=== PATIENT | female | born 1930 | race Caucasian/White ===

== ENCOUNTER 2018-03-09 09:48 | Outpatient (CLI) | payer OTHER, MEDICAID | END 2018-03-09 19:49 | disposition home or self-care (01) | LOC: SUS 09:48 | PROVIDERS: ATTEND Internal Medicine | DX: N39.0 Urinary tract infection, site not specified (principal) | CPT/HCPCS: 76770 ==

== ENCOUNTER 2019-07-04 23:50 | Inpatient (IN) | payer OTHER, MEDICAID ==
[~2019-07-04] VITALS: Ht 160 cm; Wt 61.5 kg
--- NOTE | 2019-07-05 | NUR ---
Placed in room 08 . Placed on monitoring and evaluation advisor, blood pressure machine and pulse oximeter. To gown for exam. Side rails up.
[2019-07-05 00:01] VITALS: BP_SYST 142
--- NOTE | 2019-07-05 00:04 | NUR ---
Pt AAOx3 presents to ED via BLS from [facility] for low back pain and neck pain s/p mechanical trip and fall prior to arrival. Skin tear noted to L hand. Denies KO. No other injuries/complaints per pt/noted. Will continue to monitor.
--- NOTE | 2019-07-05 00:10 | NUR ---
ER Dr. Calles at bedside examining patient.
--- NOTE | 2019-07-05 00:26 | NUR ---
Radiology at bedside.
[2019-07-05] MEDS ORDERED: MORPHINE 2 MG/ML INJ. SYRINGE IVP ONE (00:30)
[2019-07-05] MEDS ORDERED: KETOROLAC TROMETHAMINE 15 MG VIAL IVP ONE (00:30)
--- NOTE | 2019-07-05 00:53 | NUR ---
Pt taken to CT in stable condition
[2019-07-05 01:49] LABS: BASOPHILS % (AUTO) 0.3 % (0.0-2.0); EOSINOPHILS # (AUTO) 0.2 K/uL (0.0-0.4); EOSINOPHILS % (AUTO) 4.7 % (0.0-4.0); HEMATOCRIT 29.6 % (36-48); HEMOGLOBIN 9.8 g/dL (12.0-16.0); LYMPHOCYTES # (AUTO) 0.9 K/uL (1.0-5.5); LYMPHOCYTES % (AUTO) 20.4 % (20.5-51.5); MEAN CORPUSCULAR HEMOGLOBIN 33 pg (27-31); MEAN CORPUSCULAR HGB CONC 33 % (32-36); MEAN CORPUSCULAR VOLUME 100 fL (79.0-98.0); MONOCYTES # (AUTO) 0.5 K/uL (0.0-1.0); MONOCYTES % (AUTO) 11.1 % (1.7-9.3); NEUTROPHILS # (AUTO) 2.9 K/uL (1.8-7.7); NEUTROPHILS % (AUTO) 63.5 % (40.0-70.0); PLATELET COUNT (AUTO) 138 K/uL (130-430); RED BLOOD CELL COUNT(AUTO) 2.97 MIL/uL (4.2-6.2); RED CELL DISTRIBUTION WIDTH 15.5 % (9.0-15.0); WHITE BLOOD COUNT (AUTO) 4.5 K/uL (4.8-10.8)
[2019-07-05 02:07] LABS: ANION GAP 6 (5-15); CALCIUM 8.5 mg/dL (8.4-11.0); CHLORIDE 102 mmol/L (98-107); CREATININE 1.13 mg/dL (0.55-1.30); GLUCOSE 156 mg/dL (70-99); POTASSIUM 4.3 mmol/L (3.5-5.1); SODIUM SERUM 137 mmol/L (136-145); UREA NITROGEN, BLOOD 25 mg/dL (8-21)
--- NOTE | 2019-07-05 02:10 | NUR ---
Medication administered. Pt tolerated well. No adverse reactions noted. Will continue to monitor.
[2019-07-05 02:12] LABS: ALANINE AMINOTRANSFERASE 26 U/L (12-78); ALBUMIN 3.2 g/dL (3.4-4.8); ASPARTATE AMINOTRANSFERASE 16 U/L (10-37); TOTAL BILIRUBIN 0.5 mg/dL (0.0-1.0)
--- NOTE | 2019-07-05 03:09 | NUR ---
Dr. Mcdowell paged for admission
[2019-07-05] MEDS ORDERED: cefTRIAXone 1 GM IVPB PREMIX 50 ML IV ONE (03:15)
[2019-07-05] MEDS ORDERED: AZITHROMYCIN 500 MG in NS 250 ML IV ONE (03:15)
[2019-07-05] MEDS ORDERED: AZITHROMYCIN 500 MG/VIAL (ZITHROMAX) IV ONE (03:36)
--- NOTE | 2019-07-05 04:30 | NUR ---
Medication reconciliation completed with information provided by list from facility. Any prior medication reconciliation on file was reviewed and corrected.
[2019-07-05] MEDS ORDERED: GLIP5TAB26 PO (04:49)
[2019-07-05] MEDS ORDERED: POTA8CAP20 PO (04:49)
[2019-07-05] MEDS ORDERED: NITR0.4T47 SL (04:49)
[2019-07-05] MEDS ORDERED: [UNRECOGNIZED DRUG - CODE] PO (04:49)
[2019-07-05] MEDS ORDERED: CHOL500013 PO (04:49)
[2019-07-05] MEDS ORDERED: PARO-41 PO (04:49)
[2019-07-05] MEDS ORDERED: HALO50FO3 TP (04:49)
[2019-07-05] MEDS ORDERED: CLOP75TA32 PO (04:49)
[2019-07-05] MEDS ORDERED: HYDR-3921 PO (04:49)
[2019-07-05] MEDS ORDERED: LORA-259 PO (04:49)
[2019-07-05] MEDS ORDERED: ARTT BOTH EYES (04:49)
[2019-07-05] MEDS ORDERED: FAMO20TA8 PO (04:49)
[2019-07-05] MEDS ORDERED: IPRA4AER INH (04:49)
[2019-07-05] MEDS ORDERED: ISOS60TA4 PO (04:49)
[2019-07-05] MEDS ORDERED: BUPR75TA8 PO (04:49)
[2019-07-05] MEDS ORDERED: LEVO50CA2 PO (04:49)
[2019-07-05] MEDS ORDERED: esomeprazole PO (04:49)
[2019-07-05] MEDS ORDERED: CICL90CR10 TP (04:49)
[2019-07-05] MEDS ORDERED: FURO20TA4 PO (04:49)
[2019-07-05] MEDS ORDERED: LISI2.5T48 PO (04:49)
[2019-07-05] MEDS ORDERED: RANO500T4 PO (04:49)
[2019-07-05] MEDS ORDERED: FLUT16SP16 NS (04:49)
[2019-07-05] MEDS ORDERED: DENO60DI SQ (04:49)
[2019-07-05] MEDS ORDERED: PRAV40TA PO (04:49)
[2019-07-05] MEDS ORDERED: MUPI15CR12 TP (04:49)
[2019-07-05] MEDS ORDERED: METO25TA6 PO (04:49)
[2019-07-05] MEDS ORDERED: ACETAMINOPHEN 325 MG TABLET PO PRN (05:00)
--- NOTE | 2019-07-05 05:39 | NUR ---
Pt assisted with bedside commode. Pt produced <10mL urine. Unsteady gait.
--- NOTE | 2019-07-05 05:58 | NUR ---
CONSULTATION PAGED/CALLED Reason for Consultation: SYNCOPE Person Who was Notified: DALE Consulting Physician: CLEOPATRA Flitch Hanger Specialty: CARDIO Ordering Physician: MAURICE
--- NOTE | 2019-07-05 06:02 | NUR ---
Patient will be admitted to [facility]. Admitted to Telemetry unit. Will go to room 121A. Complete and up to date summary report printed. SBAR report to be given at bedside with opportunity for questions.
--- NOTE | 2019-07-05 06:19 | NUR ---
ADMIT NOTE Received pt from ER to the floor with a diagnosis of syncope. Admission process initiated. patient oriented to pain management, safety and call light-teach back done.
[2019-07-05 06:36] VITALS: BP_SYST 113
--- NOTE | 2019-07-05 07:40 | NUR ---
dr curtis came and evaluate the patient.
[2019-07-05 07:59] VITALS: BP_SYST 130
[2019-07-05] MEDS ORDERED: IPRATROPIUM/ALBUTEROL SULFATE 120 PUFFS/4 GM INH INH SCH (08:30)
[2019-07-05] MEDS ORDERED: IPRATROPIUM/ALBUTEROL SULFATE 3 ML AMPUL.NEB (DUONEB) INH PRN (08:32)
[2019-07-05] MEDS ORDERED: RANOLAZINE 500 MG TAB.SR.12H PO ONE (09:00)
[2019-07-05] MEDS ORDERED: FUROSEMIDE 20 MG TABLET PO ONE (09:00)
[2019-07-05] MEDS ORDERED: FAMOTIDINE 20 MG TABLET PO ONE (09:00)
[2019-07-05] MEDS ORDERED: ISOSORBIDE MONONITRATE 30 MG TAB.ER.24H PO ONE (09:00)
[2019-07-05] MEDS ORDERED: LISINOPRIL 5 MG TABLET PO ONE (09:00)
[2019-07-05] MEDS ORDERED: METOPROLOL TARTRATE 25 MG TABLET PO ONE (09:00)
[2019-07-05] MEDS ORDERED: buPROPion HCL 75 MG TABLET PO ONE (09:00)
[2019-07-05] MEDS ORDERED: PARoxetine HCL 20 MG TABLET PO ONE (09:00)
[2019-07-05] MEDS: CLOPIDOGREL BISULFATE 75 MG TABLET PO SCH (09:31)
--- NOTE | 2019-07-05 09:31 | NUR ---
due meds given one by one. eating breakfast right now. hob elevated.
--- NOTE | 2019-07-05 10:00 | NUR ---
PATIENT HAS LEFT FOREARM SKIN TEAR, DRY/INTACT WITH STERI STRIP ON IT. NO DRAINAGE NOTED. AND LEFT HAND DISCOLORATION NOTED. DRY/INTACT. NO ODOR NOTED. NO DRAINAGE NOTED. PURPLISH IN COLOR AND LEFT LOWER LEG SKIN TEAR DRY/INTACT NO ODOR NO DRAINAGE NOTED. AND RIGHT LOWER LEG ECCHYMOSIS NOTED. NO ODOR NOR DRAINAGE NOTED.AND MEDIAL UPPER BACK DISCOLORATION PURPLISH IN COLOR. AND LEFT BUTTOCKS DISCOLORATION PURPLISH IN COLOR NO ODOR NOR DRAINAGE NOTED. RT BUTTOCKS DISCOLORATION PURPLISH IN COLOR NOTED. NO ODOR NOR DRAINAGE NOTED.
--- NOTE | 2019-07-05 11:00 | NUR ---
RESTING IN BED NO SOB NOR PAIN NOTED.
[2019-07-05 12:30] VITALS: BP_SYST 100
--- NOTE | 2019-07-05 13:48 | NUR ---
DC PLANNING CHART REVIEWED, CALLED SEPTEMBER # [phone], SHE DID NOT ANSWER THE CALL, CALLED [facility]- # [phone], AD[address]ESS AT [id number], [place], DME- W/C, ALDS- MODERATE ASSIST, TRANSPORTATION: POSSIBLE PROVIDE FROM [facility]/ [id number] OR [facility]. DCP- BACK TO [facility]IV[facility], CONTINUE CLOSELY FOLLOW UP WITH DCP NEEDED. JCLeena RN CM
--- NOTE | 2019-07-05 13:55 | NUR ---
Wound Evaluation: Late note for 1355 secondary to patient care. Wound Consult ordered for Low Moe Score. Patient evaluated for a low Moe score of 15. Patient was awake, alert, confused and received in a Cielo Bed with an IsoFlex EDGAR mattress. Patient needs to be turned in bed. Skin assessment: 1. Left Mid Back: Large area of purple ecchymosis, present on admission. 2. Left Buttock near Ischium: Large area of purple ecchymosis, present on admission. Recommend: Place one pillow underneath left pelvis, and one pillow underneath left leg to float left buttock at all times. To turn patient (place a pillow under right side or left side (keeping both pillows used to float left buttock). Apply moisture barrier cream prn for soiling. 3. Right Lateral Forearm: Skin tear, approximated residual skin flapwith two steri-strips and dark discolored skin with ecchymosis. Bilateral upper extremities have ecchymosis. Recommend: Cleanse site with normal Saline. Pat dry. Apply non-adherent (Telfa) pad, then wrap with camden wrap. Perform site care daily. 4. Right Dorsal Hand: Dry scab. No odor, no drainage. Bilateral upper extremities have ecchymosis. Recommend: No dressings needed. Continue to monitor site q shift. Recommend: Place one pillow underneath left pelvis, and one pillow underneath left leg to float left buttock at all times. To turn patient (place a pillow under right side or left side (keeping both pillows used to float left buttock). Elevate, off-load and float bilateral heels with pillows. Offload pressure areas with pillows for pressure re-distribution. Perform skin care and monitor skin integrity Q shift. Use moisture barrier cream on moisture susceptible areas QID and PRN for soiling. Initiate low air-loss therapy.
--- NOTE | 2019-07-05 15:19 | NUR ---
PATIENT WAS SEEN BY RAMOS MADRID.
[2019-07-05 16:43] VITALS: BP_SYST 108
--- NOTE | 2019-07-05 17:00 | NUR ---
BLADDER SCAN DONE. WITH 320 ML URINE RETENTION. CALLED DR RICHARDS AWAITING TO CALL BACK.
--- NOTE | 2019-07-05 18:14 | NUR ---
DR RICHARDS CAME AND ORDERED NY INSERTION AND ENSURE PO TID.
--- NOTE | 2019-07-05 18:54 | NUR ---
NY CATHETER INSERTION DONE. WITH ADEQUATE OUTPUT. DARK BROWN COLOR. AND DOCUMENTED.
--- NOTE | 2019-07-05 19:00 | NUR ---
CLOSING: patient stable. no complained of pain noted. verbalized feels better after rdoriguez insertion. noria feeding the patient. still same iv access on the both arms x 2 saline lock. bed low position, alarmed and locked. call lights within reach. has dressing on left arm with skin tear on it. apply oil emulsion on it wrapped with kerlix left hand and left arm. will continue to monitor patients status. endorsed to incoming nurse.
--- NOTE | 2019-07-05 19:30 | NUR ---
OPENING NOTES Patient is alert, no signs of acute respiratory distress, IV site patent, dressings c/d/i. Patient is able to wiggle all toes. Call light within reach, rounds to be done, SCDs on, bed at lowest position, bed alarm on. Will continue to monitor. Addendum: 07/06/19 at 0226 by Chandu Ryan RN Fontaine catheter in place, draining by gravity, no kinks, no loops noted. No SCDs on.
[2019-07-05 20:00] VITALS: BP_SYST 140
[2019-07-05] MEDS: RANOLAZINE 500 MG TAB.SR.12H PO SCH (21:40)
[2019-07-05] MEDS: FAMOTIDINE 20 MG TABLET PO SCH (21:41)
[2019-07-05] MEDS: buPROPion HCL 75 MG TABLET PO SCH (21:41)
[2019-07-05] MEDS: METOPROLOL TARTRATE 25 MG TABLET PO SCH (21:41)
[2019-07-05] MEDS: ISOSORBIDE MONONITRATE 30 MG TAB.ER.24H PO SCH (21:41)
[2019-07-05] MEDS: ATORVASTATIN 10 MG TABLET PO SCH (21:41)
--- NOTE | 2019-07-05 22:30 | NUR ---
Patient is resting, states 0/10. Television channel changed for patient. No needs at this time. Will continue to monitor.
--- NOTE | 2019-07-06 00:05 | NUR ---
Patient is resting after patient tried to get out of bed. No signs of distress observed. Asks for ipad at the desk, but patient did not come with an ipad. Oriented patient to place and time. Will continue to monitor.
[2019-07-06 00:50] VITALS: BP_SYST 133
--- NOTE | 2019-07-06 01:59 | NUR ---
Patient is resting, no signs of acute respiratory distress observed, 1L NC. Will continue to monitor.
--- NOTE | 2019-07-06 03:30 | NUR ---
Patient is resting, no signs of distress observed. Bruises noted, no drainage, no odor. Will continue to monitor.
[2019-07-06] MEDS: LEVOTHYROXINE SODIUM 0.05 MG TABLET PO SCH (06:07)
[2019-07-06 06:29] LABS: BASOPHILS % (AUTO) 0.3 % (0.0-2.0); EOSINOPHILS # (AUTO) 0.3 K/uL (0.0-0.4); HEMATOCRIT 26.1 % (36-48); HEMOGLOBIN 8.5 g/dL (12.0-16.0); LYMPHOCYTES # (AUTO) 0.7 K/uL (1.0-5.5); LYMPHOCYTES % (AUTO) 21.7 % (20.5-51.5); MEAN CORPUSCULAR HEMOGLOBIN 32 pg (27-31); MEAN CORPUSCULAR HGB CONC 33 % (32-36); MEAN CORPUSCULAR VOLUME 99 fL (79.0-98.0); MONOCYTES # (AUTO) 0.3 K/uL (0.0-1.0); MONOCYTES % (AUTO) 9.1 % (1.7-9.3); NEUTROPHILS # (AUTO) 1.9 K/uL (1.8-7.7); NEUTROPHILS % (AUTO) 59.9 % (40.0-70.0); PLATELET COUNT (AUTO) 121 K/uL (130-430); RED BLOOD CELL COUNT(AUTO) 2.64 MIL/uL (4.2-6.2); RED CELL DISTRIBUTION WIDTH 15.2 % (9.0-15.0); WHITE BLOOD COUNT (AUTO) 3.2 K/uL (4.8-10.8)
--- NOTE | 2019-07-06 06:36 | NUR ---
CLOSING NOTES Patient is resting, HOB elevated, no signs of respiratory distress observed, 94 O2 saturation, 1L NC. IV site patent, dressings c/d/i. Patient stated 0/10 throughout shift, dressings intact. Fontaine catheter intact, draining by gravity, no kinks, no loops, bag not touching the floor, clear yellow urine noted. Call light within reach, rounds performed, bed at lowest position, bed alarm on. All needs met throughout shift. Will endorse care to oncoming shift.
[2019-07-06 06:42] LABS: ALANINE AMINOTRANSFERASE 25 U/L (12-78); ALBUMIN 2.6 g/dL (3.4-4.8); ANION GAP 6 (5-15); ASPARTATE AMINOTRANSFERASE 19 U/L (10-37); CALCIUM 8.1 mg/dL (8.4-11.0); CHLORIDE 104 mmol/L (98-107); CREATININE 1.15 mg/dL (0.55-1.30); GLUCOSE 130 mg/dL (70-99); POTASSIUM 4.1 mmol/L (3.5-5.1); SODIUM SERUM 139 mmol/L (136-145); THYROID STIMULATING HORMONE 3.04 uIu/mL (0.36-3.74); TOTAL BILIRUBIN 0.5 mg/dL (0.0-1.0); UREA NITROGEN, BLOOD 32 mg/dL (8-21)
[2019-07-06 08:00] VITALS: BP_SYST 138
--- NOTE | 2019-07-06 08:00 | NUR ---
Initial notes- In bed awake, disoriented. knows name and birthrate. Denies any pain or discomfort at this time. rodriguez cath draining yellow output. No acute distress noted. repositioned. bed alarm on. Seen by Dr. Tang at bedside. Will monitor.
[2019-07-06 08:14] LABS: CHOLESTEROL 84 mg/dL (<200); HDL CHOLESTEROL 44 mg/dL (>55); TRIGLYCERIDES 71 mg/dL (30-150)
[2019-07-06 08:15] LABS: LDL CHOLESTEROL 28 mg/dL (<100)
[2019-07-06] MEDS: METOPROLOL TARTRATE 25 MG TABLET PO SCH ×2 (08:23→21:59)
[2019-07-06] MEDS: RANOLAZINE 500 MG TAB.SR.12H PO SCH ×2 (08:23→21:59)
[2019-07-06] MEDS: ISOSORBIDE MONONITRATE 30 MG TAB.ER.24H PO SCH ×2 (08:24→21:59)
[2019-07-06] MEDS: CLOPIDOGREL BISULFATE 75 MG TABLET PO SCH (08:24)
[2019-07-06] MEDS: buPROPion HCL 75 MG TABLET PO SCH ×2 (08:24→21:59)
[2019-07-06] MEDS: FAMOTIDINE 20 MG TABLET PO SCH ×2 (08:25→21:59)
[2019-07-06] MEDS: PARoxetine HCL 20 MG TABLET PO SCH (08:25)
[2019-07-06] MEDS: FUROSEMIDE 20 MG TABLET PO SCH (08:25)
[2019-07-06] MEDS: LISINOPRIL 5 MG TABLET PO SCH (08:26)
[2019-07-06 09:33] LABS: BILIRUBIN,URINE NEGATIVE (NEGATIVE); BLOOD, URINE 2+ (NEGATIVE); CLARITY/URINE CLEAR (CLEAR); COLOR,URINE YELLOW (YELLOW); GLUCOSE,URINE NEGATIVE (NEGATIVE); KETONES,URINE NEGATIVE (NEGATIVE); LEUKOCYTE ESTERASE ,URINE TRACE (NEGATIVE); NITRITE, URINE NEGATIVE (NEGATIVE); PH,URINE 5.5 (5.0-8.0); PROTEIN URINE 1+ (NEGATIVE)
[2019-07-06 10:11] LABS: BACTERIA,URINE FEW /HPF (None Seen); RBC,URINE 50-80 /HPF (0-3)
[2019-07-06 10:12] LABS: MUCUS,URINE 1+ /LPF (None Seen)
--- NOTE | 2019-07-06 10:29 | NUR ---
Nutrition Update Moe Scale 15 noted. Pt admitted for syncope. Diet: 2 gm Na, Ensure Clear TID BMI: 23 kg/m2 RD to follow per nutrition care standards.
--- NOTE | 2019-07-06 11:38 | NUR ---
Physical therapy at bedside, working with patient.
[2019-07-06 12:15] VITALS: BP_SYST 122
--- NOTE | 2019-07-06 13:30 | NUR ---
Resting in bed, calm. Assisted with eating lunch. Ate very small amount of food. Encouraged fluids. Repositioned.
--- NOTE | 2019-07-06 15:39 | NUR ---
CONSULT HEMATOLOGY PANCYTOPENIA DR FARAH [phone] S/W [facility] OFFICE
--- NOTE | 2019-07-06 15:56 | NUR ---
ROUNDS Seen by dr. Fitch. In bed awake, watching tv. No distress noted. Will continue to monitor.
[2019-07-06] MEDS ORDERED: MEGESTROL ACETATE 400 MG/10 ML UDC PO ONE (16:30)
[2019-07-06 16:51] VITALS: BP_SYST 132
--- NOTE | 2019-07-06 18:33 | NUR ---
Resting in bed. Denies any pain or shortness of breath. Fall and safety precautions in place. Needs met throughout shift. Will endorse.
--- NOTE | 2019-07-06 19:15 | NUR ---
OPENING NOTES Patient is resting, no signs of distress, patient states 0/10 pain at this time. IV site patent, dressings c/d/i. Call light within reach, patient verbalizes understanding, but rounds to be performed, Fontaine catheter intact, draining by gravity, no kinks, no loops, noted. Bed alarm on, bed at lowest position. Will continue to monitor.
[2019-07-06 20:00] VITALS: BP_SYST 141
[2019-07-06] MEDS: ATORVASTATIN 10 MG TABLET PO SCH (21:59)
--- NOTE | 2019-07-06 22:15 | NUR ---
Patient sitting at the side of the bed, oriented patient to room and plan of care. Patient states that she understands. Will continue to monitor.
--- NOTE | 2019-07-07 00:05 | NUR ---
Patient is resting, no signs of distress observed. Will continue to monitor.
[2019-07-07 01:36] VITALS: BP_SYST 143
--- NOTE | 2019-07-07 02:20 | NUR ---
Patient is awake, eyes open. Patient states she is resting, no signs of distress observed. Will continue to monitor.
--- NOTE | 2019-07-07 04:25 | NUR ---
Patient is asleep, rise and fall of chest noted. will continue to monitor.
[2019-07-07] MEDS: LEVOTHYROXINE SODIUM 0.05 MG TABLET PO SCH (06:01)
[2019-07-07 06:17] LABS: BASOPHILS % (AUTO) 0.3 % (0.0-2.0); EOSINOPHILS # (AUTO) 0.3 K/uL (0.0-0.4); EOSINOPHILS % (AUTO) 7.8 % (0.0-4.0); HEMATOCRIT 25.8 % (36-48); HEMOGLOBIN 8.4 g/dL (12.0-16.0); LYMPHOCYTES # (AUTO) 0.9 K/uL (1.0-5.5); LYMPHOCYTES % (AUTO) 27.1 % (20.5-51.5); MEAN CORPUSCULAR HEMOGLOBIN 33 pg (27-31); MEAN CORPUSCULAR HGB CONC 33 % (32-36); MEAN CORPUSCULAR VOLUME 99 fL (79.0-98.0); MONOCYTES # (AUTO) 0.6 K/uL (0.0-1.0); MONOCYTES % (AUTO) 15.9 % (1.7-9.3); NEUTROPHILS # (AUTO) 1.7 K/uL (1.8-7.7); NEUTROPHILS % (AUTO) 48.9 % (40.0-70.0); PLATELET COUNT (AUTO) 122 K/uL (130-430); RED CELL DISTRIBUTION WIDTH 15.3 % (9.0-15.0); WHITE BLOOD COUNT (AUTO) 3.5 K/uL (4.8-10.8)
[2019-07-07 06:21] LABS: ANION GAP 3 (5-15); CALCIUM 8.2 mg/dL (8.4-11.0); CHLORIDE 101 mmol/L (98-107); CREATININE 0.96 mg/dL (0.55-1.30); GLUCOSE 84 mg/dL (70-99); POTASSIUM 3.4 mmol/L (3.5-5.1); SODIUM SERUM 132 mmol/L (136-145); UREA NITROGEN, BLOOD 28 mg/dL (8-21)
--- NOTE | 2019-07-07 06:37 | NUR ---
CLOSING NOTES Patient is resting, no signs of distress, patient states 0/10 pain at this time. IV site patent, dressings c/d/i. Call light within reach, patient verbalizes understanding, but rounds to be performed, Fontaine catheter intact, draining by gravity, no kinks, no loops, noted. Bed alarm on, bed at lowest position. All needs met throughout shift. Will endorse care to oncoming shift.
[2019-07-07 06:56] LABS: TOTAL IRON BIND. CAPACITY 250 ug/dL (250-450)
--- NOTE | 2019-07-07 07:30 | NUR ---
OPENING NOTES: RECEIVED PATIENT FORM PARKS RECREATION DIRECTOR NURSE. PATIENT IS ASLEEP LAYING DOWN IN BED. PATIENT IS TOLERATING OXYGEN ON 2 L NASAL CANNULA WITH NO SIGNS OF DISTRESS OR SHORTNESS OF BREATH NOTED. IV SITE IS PATENT WITH NO SIGNS OF INFILTRATION NOTED. NY CATHETER INTACT AND DRAINING BY GRAVITY. PATIENT IN STABLE CONDITION. SAFETY, FALL AND ASPIRATION PRECAUTIONS ARE IN PLACE. BED LOCKED IN LOWEST POSITION WITH CALL LIGHT IN REACH. WILL CONTINUE TO MONITOR PATIENT FOR ANY CHANGES.
[2019-07-07 08:11] VITALS: BP_SYST 139
[2019-07-07] MEDS: PARoxetine HCL 20 MG TABLET PO SCH (08:58)
[2019-07-07] MEDS: RANOLAZINE 500 MG TAB.SR.12H PO SCH ×2 (08:58→21:10)
[2019-07-07] MEDS: FAMOTIDINE 20 MG TABLET PO SCH ×2 (08:58→21:10)
[2019-07-07] MEDS: MEGESTROL ACETATE 400 MG/10 ML UDC PO SCH (08:58)
[2019-07-07] MEDS: ISOSORBIDE MONONITRATE 30 MG TAB.ER.24H PO SCH ×2 (08:59→21:10)
[2019-07-07] MEDS: FUROSEMIDE 20 MG TABLET PO SCH (08:59)
[2019-07-07] MEDS: buPROPion HCL 75 MG TABLET PO SCH ×2 (08:59→21:10)
[2019-07-07] MEDS: LISINOPRIL 5 MG TABLET PO SCH (09:00)
[2019-07-07] MEDS: METOPROLOL TARTRATE 25 MG TABLET PO SCH ×2 (09:00→21:11)
[2019-07-07 09:55] LABS: BILIRUBIN,URINE NEGATIVE (NEGATIVE); BLOOD, URINE 2+ (NEGATIVE); CLARITY/URINE CLEAR (CLEAR); COLOR,URINE YELLOW (YELLOW); GLUCOSE,URINE NEGATIVE (NEGATIVE); KETONES,URINE NEGATIVE (NEGATIVE); LEUKOCYTE ESTERASE ,URINE NEGATIVE (NEGATIVE); NITRITE, URINE NEGATIVE (NEGATIVE); PH,URINE 5.5 (5.0-8.0); PROTEIN URINE TRACE (NEGATIVE); UROBILINOGEN,URINE 0.2 (0.2-1.0)
[2019-07-07 10:00] LABS: BACTERIA,URINE FEW /HPF (None Seen); RBC,URINE 20-50 /HPF (0-3); WBC,URINE 0-3 /HPF (0-3)
--- NOTE | 2019-07-07 10:22 | NUR ---
RN ROUNDS: PATIENT IS ASLEEP LAYING DOWN IN BED. NO SIGNS OF DISTRESS OR SHORTNESS OF BREATH NOTED. PATIENT IN STABLE CONDITION. WILL CONTINUE TO MONITOR PATIENT FOR ANY CHANGES.
--- NOTE | 2019-07-07 10:34 | NUR ---
MD ROUNDS: DR. RICHARDS MAKING HIS ROUNDS. AWARE OF PATIENT'S CONDITION. NEW ORDERS GIVEN.
[2019-07-07] MEDS ORDERED: POTASSIUM CHLORIDE 20 MEQ/PKT PACKET PO ONE (10:45)
--- NOTE | 2019-07-07 11:00 | NUR ---
DISCONTINUED NY CATHETER: NY CATHETER DISCONTINUED. PATIENT TOLERATED IT WELL. WILL CONTINUE TO MONITOR PATIENT.
[2019-07-07] MEDS: INSULIN REGULAR, HUMAN 100 UNITS/ML, 10 ML VIAL (humuLIN R) SUBCUT PRN ×2 (11:15→17:05)
--- NOTE | 2019-07-07 11:34 | NUR ---
DC PLANNING SPOKE TO DAUGHTER SEPTEMBER [phone], DCP- BACK TO [facility], AT ADDRESS: [address] [place] [id number], TEL # [phone], TRANSPORTATION- WILL BE PROVIDED BY [facility] # [phone] VS DAUGHTER SEPTEMBER/ PRIVATE CARE CURRENTLY NO DC ORDER, JEB ALONZO IS AWARE OF THE DCP INFORMATION. CONTINUE FOLLOW UP WITH DCP NEEDED. SOREN RUSS CM Addendum: 07/07/19 at 1359 by Bhaskar Tomlinson RN DC PLANNING SPOKE TO [facility]/ [employer] [facility], TEL # [phone] TRANSFER TO [facility]. [facility] CAN MATTING PRESS TENDER PATIENT AT 3 PM TOMORROW IF THERE IS DC ORDER IN PLACE. PER PT: 15 FEET WITH FWW, PER FACILITY: PATIENT'S MOBILITY BASELINE IS A SHORT DISTANCE WITH A WALKER. CONTINUE FOLLOW UP WITH DCP NEEDED SOREN RUSS CM
[2019-07-07] MEDS: SOD FERRIC GLUC COMPLEX/SUC 125 MG in NS 100 ML IV SCH (11:35)
--- NOTE | 2019-07-07 12:19 | NUR ---
RN ROUNDS: PATIENT IS AWAKE AND ALERT x2 SITTING UP IN BED EATING LUNCH. NO SIGNS OF DISTRESS OR SHORTNESS OF BREATH NOTED. PATIENT IN STABLE CONDITION. WILL CONTINUE TO MONITOR PATIENT FOR ANY CHANGES.
[2019-07-07 12:20] VITALS: BP_SYST 134
--- NOTE | 2019-07-07 14:48 | NUR ---
RN ROUNDS: PATIENT IS AWAKE AND ALERT x2 LAYING DOWN IN BED. NO SIGNS OF DISTRESS OR SHORTNESS OF BREATH NOTED. PATIENT IN STABLE CONDITION. WILL CONTINUE TO MONITOR PATIENT FOR ANY CHANGES.
[2019-07-07 16:15] VITALS: BP_SYST 129
--- NOTE | 2019-07-07 16:25 | NUR ---
Dietitian Recommendations * Recommend mechanical soft, CCHO low carb-45 gm diet w/ Glucerna TID (ONS provides 660 kcal/day, 30 gm protein/day) LP, RD Please refer to Nutrition Assessment for details. Addendum: 07/08/19 at [address] Amended: Links added.
--- NOTE | 2019-07-07 18:36 | NUR ---
CLOSING NOTES: PATIENT IS AWAKE AND ALERT x1 LAYING DOWN IN BED. PATIENT IS TOLERATING OXYGEN ON 2 L NASAL CANNULA WITH NO SIGNS OF DISTRESS OR SHORTNESS OF BREATH NOTED. IV SITE IS PATENT WITH NO SIGNS OF INFILTRATION NOTED. PATIENT IN STABLE CONDITION. SAFETY, FALL AND ASPIRATION PRECAUTIONS REMAINED IN PLACE THROUGHOUT THE SHIFT. BED LOCKED IN LOWEST POSITION WITH CALL LIGHT IN REACH. WILL ENDORSE PATIENT CARE TO ONCOMING RISK ASSESSOR NURSE.
[2019-07-07 19:00] VITALS: BP_SYST 116
--- NOTE | 2019-07-07 19:15 | NUR ---
change of shift.pt.presents quiescent affect;calm,resting.p.presents iv access x2 lock.general status stable.respiratory status stable;unlabored pt.receiving the administration o2 therapy via nasal cannulae.@2l/min.call light/telephone w/in reach of the pt.
[2019-07-07 20:00] VITALS: BP_SYST 116
--- NOTE | 2019-07-07 20:00 | NUR ---
pt.assessed.v/s assessed values w/in normal limits.no c/o pain,nausea.pt.assessed for cleanliness.pt.presents bm. pt.cleaned.pt.repositioned. i have apprised the pt.that snacks/beverages may be provided w/in the shift.no requests posited@this hour.call light/ telephone placed w/in reach of the pt.
--- NOTE | 2019-07-07 20:30 | NUR ---
i have assessed the blood glucose;value;146mg/dl.i have apprised the pt.of the blood glucose value. no requests posited @this hour.
--- NOTE | 2019-07-07 21:00 | NUR ---
2100pmedicatons administered.po:absent difficulty.pt.capable to ingest the medications whole w/apple sauce.
[2019-07-07] MEDS: ATORVASTATIN 10 MG TABLET PO SCH (21:10)
--- NOTE | 2019-07-07 22:00 | NUR ---
pt.assessed.pt.presents quiescent affect;calm,somnolent.pt.assessed for cleanliness.pt.repositioned.iv access intact;patent x2 sites. no c/o pain,nausea.no requests posited@this hour.general status stable.respiratory status stable;unlabored.02-sat%=96%. call light/telephone placed w/in reach of the pt.
--- NOTE | 2019-07-08 | NUR ---
pt.assessed.v/s assessed;values w/in normal limits.pt.assessed for cleanliness.pt.repositioned.iv access intact;patent iv lock. pt.presents quiescent affect;calm,somnolent.general status stable.respiratory status stable;unlabored.call light/telephone phone placed w/.in reach of the pt. Addendum: 07/08/19 at 0155 by Edwin Messer RN o2-sat%=96%.
--- NOTE | 2019-07-08 02:00 | NUR ---
pt.assessed.pt.presents quiescent affect;calm,somnolent.pt.assessed for cleanliness.pt.repositioned.no c/o pain, nausea. iv accessx2 intact patent iv lock.general status stable.respiratory status stable:02-sat%=96%.call light/telephone placed w/in reach of the pt.
--- NOTE | 2019-07-08 04:00 | NUR ---
pt.assessed.i have assisted the pt.w/the bedpan.pt.presented urine.no bm.pt.cleaned.repositioned.no c/o pain,nausea. general status stable.respiratory status stable;unlabored;02-sat%=96%.call light/telephone placed w/in reach of the pt.
[2019-07-08 05:48] LABS: ANION GAP 5 (5-15); CALCIUM 8.1 mg/dL (8.4-11.0); CHLORIDE 104 mmol/L (98-107); CREATININE 1.07 mg/dL (0.55-1.30); GLUCOSE 155 mg/dL (70-99); POTASSIUM 4.3 mmol/L (3.5-5.1); SODIUM SERUM 138 mmol/L (136-145); UREA NITROGEN, BLOOD 29 mg/dL (8-21)
[2019-07-08] MEDS: LEVOTHYROXINE SODIUM 0.05 MG TABLET PO SCH (06:25)
[2019-07-08] MEDS: INSULIN REGULAR, HUMAN 100 UNITS/ML, 10 ML VIAL (humuLIN R) SUBCUT PRN (06:26)
--- NOTE | 2019-07-08 06:33 | NUR ---
pt.assess.pt.presents quiescent affect;calm,resting,viewing tv programming.i have assessed the blood glucose;value:165mg/dl. i apprised the pt.of the value;pt.would require insulin administration 2/t sliding scale parameters;pt.refused the insulin[place] 0700a dose.pt.assessed for cleanliness.pt repositioned.general status stable.respiratory status stable;unlabored;02-sat%=96%.call light/telephone placed w/in reach of the pt.i have weighed the pt.2/t chf/lasix.
[2019-07-08 07:00] LABS: BASOPHILS % (AUTO) 0.4 % (0.0-2.0); EOSINOPHILS # (AUTO) 0.2 K/uL (0.0-0.4); EOSINOPHILS % (AUTO) 5.5 % (0.0-4.0); HEMATOCRIT 25.6 % (36-48); HEMOGLOBIN 8.5 g/dL (12.0-16.0); LYMPHOCYTES # (AUTO) 1.1 K/uL (1.0-5.5); MEAN CORPUSCULAR HEMOGLOBIN 33 pg (27-31); MEAN CORPUSCULAR HGB CONC 33 % (32-36); MEAN CORPUSCULAR VOLUME 99 fL (79.0-98.0); MONOCYTES # (AUTO) 0.5 K/uL (0.0-1.0); MONOCYTES % (AUTO) 13.5 % (1.7-9.3); NEUTROPHILS # (AUTO) 1.9 K/uL (1.8-7.7); NEUTROPHILS % (AUTO) 50.6 % (40.0-70.0); PLATELET COUNT (AUTO) 153 K/uL (130-430); RED BLOOD CELL COUNT(AUTO) 2.59 MIL/uL (4.2-6.2); RED CELL DISTRIBUTION WIDTH 15.2 % (9.0-15.0); WHITE BLOOD COUNT (AUTO) 3.7 K/uL (4.8-10.8)
[2019-07-08 07:06] LABS: FOLATE (FOLIC ACID) 4.8 ng/mL (>3.0)
[2019-07-08 07:56] VITALS: BP_SYST 148
[2019-07-08] MEDS: RANOLAZINE 500 MG TAB.SR.12H PO SCH (08:14)
[2019-07-08] MEDS: ISOSORBIDE MONONITRATE 30 MG TAB.ER.24H PO SCH (08:15)
[2019-07-08] MEDS: LISINOPRIL 5 MG TABLET PO SCH (08:16)
[2019-07-08] MEDS: PARoxetine HCL 20 MG TABLET PO SCH (08:17)
[2019-07-08] MEDS: FAMOTIDINE 20 MG TABLET PO SCH (08:17)
[2019-07-08] MEDS: METOPROLOL TARTRATE 25 MG TABLET PO SCH (08:17)
[2019-07-08] MEDS: FUROSEMIDE 20 MG TABLET PO SCH (08:17)
[2019-07-08] MEDS: buPROPion HCL 75 MG TABLET PO SCH (08:18)
[2019-07-08] MEDS: MEGESTROL ACETATE 400 MG/10 ML UDC PO SCH ×2 (08:19→08:29)
[2019-07-08] MEDS ORDERED: POTASSIUM CHLORIDE 20 MEQ TAB.PRT.SR PO SCH (09:00)
--- NOTE | 2019-07-08 11:30 | NUR ---
pt on room air, o2 sat was 83% when pt is asleep and 87% while awake. pt place on o2 2li per nc. o2 sat went up to 95-97%. bs = 120
[2019-07-08] MEDS: SOD FERRIC GLUC COMPLEX/SUC 125 MG in NS 100 ML IV SCH (11:36)
[2019-07-08 12:03] VITALS: BP_SYST 143
[2019-07-08 12:07] VITALS: BP_SYST 134
--- NOTE | 2019-07-08 12:08 | NUR ---
PATIENT HAS OXYGEN CONCENTRATOR AT HOME PER ABBEY. Addendum: 07/08/19 at 1411 by Jose Cota RN CORRECTION: .... [employer]. INSTEAD OF [facility].
--- NOTE | 2019-07-08 13:30 | NUR ---
DC Planning: s/w Teena RN at [facility]: She confirmed the pt already has concentrator in her apartment. The pt has [facility] in the past. Cm will arrange home health PT. Teena arranged the quill picking machine operator time at 3 pm and ok to care for the pt while HH /PT being arranged.
--- NOTE | 2019-07-08 14:19 | NUR ---
REPORT GIVEN TO [facility] OF [facility].
--- NOTE | 2019-07-08 16:00 | NUR ---
D/C Patient Patient given medication reconciliation form and D/C instructions. Exit Care provided. Patient verbalized understanding. MD discussed with patient the results and treatment provided. Ambulatory with steady gait for discharge to home. Patient in stable condition, ID band removed. IV catheter removed, intact and dressing applied, no active bleeding. Rx of given. Patient educated on pain management. All belongings sent with patient. Photo documentation of patient's bruises and wounds done.
--- NOTE | 2019-07-08 16:17 | NUR ---
Discharge Planning: DCP faxed pt referral to [facility] (f [phone] p [phone]) DCP to follow up.
[2019-07-08 16:23] VITALS: BP_SYST 143
--- NOTE | 2019-07-14 14:42 | NUR ---
Discharge Follow Up Phone Call: RN CORRECTIONS placed call to [facility] ([phone]); RN CORRECTIONS spoke with Oleg who confirmed that services were started on 07/10/19. RN CORRECTIONS placed call to [facility] ([phone]) and spoke to Teena who states that pt is doing well at this time. Teena states that pt's family would take pt to her PCP appointments but many appointments are not being made at this time due to the stay home order.
== END 2019-07-08 15:50 | disposition home health service (06) | DRG 312 ==
LOC: SED 23:50 → STU 07-05 04:53
PROVIDERS: ADMIT Internal Medicine; ATTEND Internal Medicine
DX: R55 Syncope and collapse (principal); D61.818 Other pancytopenia; E44.1 Mild protein-calorie malnutrition; J96.10 Chronic respiratory failure, unspecified whether with hypoxia or hypercapnia; M48.54XA Collapsed vertebra, not elsewhere classified, thoracic region, initial encounter for fracture; W01.0XXA Fall on same level from slipping, tripping and stumbling without subsequent striking against object, initial encounter; E11.9 Type 2 diabetes mellitus without complications; E78.5 Hyperlipidemia, unspecified; I10 Essential (primary) hypertension; D75.89 Other specified diseases of blood and blood-forming organs; E03.9 Hypothyroidism, unspecified; F32.9 Major depressive disorder, single episode, unspecified; G89.4 Chronic pain syndrome; M19.90 Unspecified osteoarthritis, unspecified site; Z96.611 Presence of right artificial shoulder joint; K21.9 Gastro-esophageal reflux disease without esophagitis; F41.9 Anxiety disorder, unspecified; M81.0 Age-related osteoporosis without current pathological fracture; R31.29 Other microscopic hematuria; R94.31 Abnormal electrocardiogram [ECG] [EKG]; I49.1 Atrial premature depolarization; D46.9 Myelodysplastic syndrome, unspecified; Z81.8 Family history of other mental and behavioral disorders; Z90.49 Acquired absence of other specified parts of digestive tract; Y93.89 Activity, other specified; I25.2 Old myocardial infarction; Y92.89 Other specified places as the place of occurrence of the external cause; Y99.8 Other external cause status; Z79.899 Other long term (current) drug therapy; Z95.1 Presence of aortocoronary bypass graft; Z99.81 Dependence on supplemental oxygen; Z88.2 Allergy status to sulfonamides; Z88.8 Allergy status to other drugs, medicaments and biological substances; Z88.1 Allergy status to other antibiotic agents; Z91.040 Latex allergy status; Z68.24 Body mass index [BMI] 24.0-24.9, adult
CPT/HCPCS: 36415; 70450-TC; 71045; 71250-TC; 72125-TC; 72128; 72131; 80048; 80053; 80061; 81000-TC; 82550-TC; 82607; 82728; 82746; 82962; 83540-TC; 83550-TC; 83605; 83735-TC; 83880; 84443-TC; 84484; 85025; 87040-TC; 87086; 93005; 93306; 96365; 96367; 96375; 97110-GP; 97116-GP; 99285; G0378; J0456; J0696; J1885; J2270; J2916; J7030; J7040

== ENCOUNTER 2020-12-14 12:08 | Observation (INO) | payer OTHER, MEDICAID, SELFPAY ==
[~2020-12-14] VITALS: Ht 149.9 cm; Wt 59.0 kg
[~2020-12-14 12:08] MED LIST: ARTT BOTH EYES; BUPR75TA8 PO; CHOL500013 PO; CICL90CR10 TP; CLOP75TA32 PO; DENO60DI SQ; FAMO20TA8 PO; FLUT16SP16 NS; FURO20TA4 PO; GLIP5TAB26 PO; HALO50FO3 TP; HYDR-3921 PO; IPRA4AER INH; ISOS60TA71 PO; LEVO50CA2 PO; LISI2.5T48 PO; LORA-259 PO; NITR0.4T47 SL; PARO-41 PO; POTA8CAP20 PO; PRAV40TA PO; RANO500T4 PO; [UNRECOGNIZED DRUG - CODE] PO; esomeprazole PO
--- NOTE | 2020-12-14 12:10 | NUR ---
Placed in room hallway . Placed on monitor tech, blood pressure machine and pulse oximeter. To gown for exam. Side rails up. Report given to JEB Mcqueen.
[2020-12-14 12:11] VITALS: BP_SYST 153
--- NOTE | 2020-12-14 12:11 | NUR ---
Placed in room 4 . Placed on nurse monitoring, blood pressure machine and pulse oximeter. To gown for exam. Side rails up.
--- NOTE | 2020-12-14 12:12 | NUR ---
Pt bib ambulance for shortness of breath. Pt denies pain pt breathing is even and unlabored lungs CTA bilaterally. Pt is AAOX4. Pt blood pressure elevated 169/82. Saturating 93% RA. No distress noted at this time. Pt resting in gurney attached to monitor.
--- NOTE | 2020-12-14 12:13 | NUR ---
Lab at bedside.
--- NOTE | 2020-12-14 12:13 | NUR ---
ER at bedside examining patient.
--- NOTE | 2020-12-14 12:14 | NUR ---
Pt urine collected and sent to lab.
[2020-12-14] MEDS ORDERED: ASPIRIN 81 MG TAB.CHEW PO ONE (12:15)
--- NOTE | 2020-12-14 12:15 | NUR ---
# 20gauge angiocath placed to LAC. Use of asceptic technique. Opsite placed over site. Blood return noted. Blood for lab drawn from site. Flushed with 10 cc of normal saline. No evidence of infiltration noted. Patient tolerated well.
[2020-12-14 12:32] LABS: BASOPHILS % (AUTO) 0.4 % (0.0-2.0); EOSINOPHILS # (AUTO) 0.3 K/uL (0.0-0.4); EOSINOPHILS % (AUTO) 3.7 % (0.0-4.0); HEMATOCRIT 28.3 % (36-48); HEMOGLOBIN 9.5 g/dL (12.0-16.0); LYMPHOCYTES # (AUTO) 2.1 K/uL (1.0-5.5); LYMPHOCYTES % (AUTO) 28.5 % (20.5-51.5); MEAN CORPUSCULAR HEMOGLOBIN 32 pg (27-31); MEAN CORPUSCULAR HGB CONC 34 % (32-36); MEAN CORPUSCULAR VOLUME 94 fL (79.0-98.0); MONOCYTES # (AUTO) 0.6 K/uL (0.0-1.0); MONOCYTES % (AUTO) 8.8 % (1.7-9.3); NEUTROPHILS # (AUTO) 4.3 K/uL (1.8-7.7); NEUTROPHILS % (AUTO) 58.6 % (40.0-70.0); PLATELET COUNT (AUTO) 163 K/uL (130-430); RED CELL DISTRIBUTION WIDTH 15.8 % (9.0-15.0); WHITE BLOOD COUNT (AUTO) 7.3 K/uL (4.8-10.8)
[2020-12-14 12:43] LABS: ANION GAP 5 (5-15); CALCIUM 8.6 mg/dL (8.4-11.0); CHLORIDE 106 mmol/L (98-107); CREATININE 1.16 mg/dL (0.55-1.30); GLUCOSE 144 mg/dL (70-99); POTASSIUM 4.7 mmol/L (3.5-5.1); SODIUM SERUM 138 mmol/L (136-145); UREA NITROGEN, BLOOD 37 mg/dL (8-21)
[2020-12-14 12:48] LABS: ALANINE AMINOTRANSFERASE 29 U/L (12-78); ALBUMIN 2.8 g/dL (3.4-4.8); ASPARTATE AMINOTRANSFERASE 20 U/L (10-37); CHOLESTEROL 134 mg/dL (<200); HDL CHOLESTEROL 80 mg/dL (>55); LDL CHOLESTEROL 53 mg/dL (<100); TOTAL BILIRUBIN 0.3 mg/dL (0.0-1.0); TRIGLYCERIDES 60 mg/dL (30-150)
--- NOTE | 2020-12-14 13:00 | NUR ---
Pt given warm blankets and placed in fowlers positon with pillow behind head and under legs.
--- NOTE | 2020-12-14 13:35 | NUR ---
Covid swab collected and sent to lab.
--- NOTE | 2020-12-14 13:37 | NUR ---
X-ray at bedside.
[2020-12-14] MEDS ORDERED: LEVOFLOXACIN IN DEXTROSE 5 % 100 ML IV ONE (13:45)
[2020-12-14 13:46] LABS: BILIRUBIN,URINE NEGATIVE (NEGATIVE); CLARITY/URINE SL CLOUDY (CLEAR); COLOR,URINE YELLOW (YELLOW); GLUCOSE,URINE NEGATIVE (NEGATIVE); KETONES,URINE NEGATIVE (NEGATIVE); LEUKOCYTE ESTERASE ,URINE 2+ (NEGATIVE); NITRITE, URINE POSITIVE (NEGATIVE); PH,URINE 5.5 (5.0-8.0); PROTEIN URINE NEGATIVE (NEGATIVE); UROBILINOGEN,URINE 0.2 (0.2-1.0)
[2020-12-14 13:49] LABS: BLOOD, URINE TRACE (NEGATIVE)
--- NOTE | 2020-12-14 14:28 | NUR ---
Admit orders recieved.
[2020-12-14 14:45] LABS: BACTERIA,URINE MANY /HPF (None Seen); WBC,URINE >100 /HPF (0-3)
--- NOTE | 2020-12-14 16:37 | NUR ---
Pt resting in [facility] no distress noted at this time. Vital signs holding.
[2020-12-14] MEDS ORDERED: FOLI-43 PO (17:41)
[2020-12-14] MEDS ORDERED: BUPR75TA20 PO (17:41)
[2020-12-14] MEDS ORDERED: METO25TA3 PO (17:41)
[2020-12-14] MEDS ORDERED: PANT20TA2 PO (17:41)
--- NOTE | 2020-12-14 17:42 | NUR ---
Medication reconciliation completed with information provided by Pt chart from [facility]. Any prior medication reconciliation on file was reviewed and corrected.
--- NOTE | 2020-12-14 18:34 | NUR ---
Pt asleep in [facility]. No distress noted at this time.
--- NOTE | 2020-12-14 19:11 | NUR ---
Spoke with daughter Joceline [phone]
--- NOTE | 2020-12-14 19:13 | NUR ---
Care endorsed to Abdelrahman RUSS.
--- NOTE | 2020-12-14 19:14 | NUR ---
Received endorsement from day shift, AARD, breathing spontaneously at room air, not in distress noted. With IV cannula g20 at left ac on saline lock noted. VItal signs stable. Addendum: 12/14/20 at 2016 by HIRAL breathing spontaneously with O2 at 2L/min via nasal cannula
[2020-12-14] MEDS ORDERED: ACETAMINOPHEN 325 MG TABLET PO PRN (19:30)
[2020-12-14] MEDS ORDERED: NITROGLYCERIN 0.4 MG TAB.SUBL SL SCH (19:30)
[2020-12-14] MEDS ORDERED: LORazepam 2 MG/ML VIAL IVP PRN (19:30)
[2020-12-14] MEDS ORDERED: ONDANSETRON HCL 4 MG/2 ML VIAL IVP PRN (19:30)
[2020-12-14] MEDS ORDERED: LORazepam 1 MG TABLET PO PRN (19:30)
--- NOTE | 2020-12-14 19:45 | NUR ---
Patient's code status is FULL CODE, paperwork completed and placed in chart.
--- NOTE | 2020-12-14 19:50 | NUR ---
Voided freely in bedpan, omega-anal care done and kept comfortable to bed
--- NOTE | 2020-12-14 20:35 | NUR ---
Apparently asking for food, fruit, turkey sandwich and vanilla pudding, consumed 70% of food, tolerated well
[2020-12-14] MEDS ORDERED: ATORVASTATIN 10 MG TABLET ONE (20:55)
[2020-12-14] MEDS ORDERED: glipiZIDE XL 5 MG TAB ( GLUCOTROL XL) PO ONE (20:55)
[2020-12-14] MEDS ORDERED: METOPROLOL SUCCINATE 25 MG TAB.SR.24H (TOPROL XL) PO ONE (20:56)
[2020-12-14] MEDS: ATORVASTATIN 10 MG TABLET PO SCH (20:59)
[2020-12-14] MEDS: HYDROcodone/ACETAMIN 7.5-325 MG TAB PO SCH (21:00)
[2020-12-14] MEDS ORDERED: CICLOPIROX OLAMINE TP SCH (21:00)
[2020-12-14] MEDS: PEG 400/HYPROMELLOSE/GLYCERIN 15 ML DROPS BOTH EYES SCH (21:00)
[2020-12-14] MEDS: RANOLAZINE 500 MG TAB.SR.12H PO SCH (21:00)
[2020-12-14] MEDS: METOPROLOL SUCCINATE 25 MG TAB.SR.24H (TOPROL XL) PO SCH (21:01)
[2020-12-14] MEDS: glipiZIDE XL 5 MG TAB ( GLUCOTROL XL) PO SCH (21:01)
--- NOTE | 2020-12-14 21:03 | NUR ---
Due Medications given as ordered, health teaching provided and verbalized understanding
--- NOTE | 2020-12-14 22:31 | NUR ---
Asleep, not in distress noted, vital signs stable
[2020-12-14] MEDS: NORMAL SALINE 5 ML DISP.SYRIN IVF SCH (23:20)
--- NOTE | 2020-12-15 01:41 | NUR ---
Transferred to bed, kept comfortable and diaper changed
--- NOTE | 2020-12-15 03:34 | NUR ---
Asleep, not in distress noted
--- NOTE | 2020-12-15 05:32 | NUR ---
Chux fully soaked with urine, omega-anal care done and changed, turn to left side lying position
--- NOTE | 2020-12-15 06:10 | NUR ---
Glucose-62, orange juice 125ml and 1 pack apple sauce offered, tolerated orally
[2020-12-15] MEDS: NORMAL SALINE 5 ML DISP.SYRIN IVF SCH ×3 (06:30→21:44)
--- NOTE | 2020-12-15 07:10 | NUR ---
Bonilla to assume care, pt calm alert, skin warm and dry. repositioned for comfort, denies cp/sob
--- NOTE | 2020-12-15 07:11 | NUR ---
Endorsed to day shift JEB Massey in stable condition for continuity of care
--- NOTE | 2020-12-15 07:28 | NUR ---
ECHOCARDIOGRAM IN PROGRESS, PT TOLERATING WELL, NO DISTRESS
--- NOTE | 2020-12-15 08:03 | NUR ---
SITTING UP EATING BREAKFAST, TOLERATING PO WELL
[2020-12-15 08:20] LABS: BASOPHILS % (AUTO) 0.4 % (0.0-2.0); EOSINOPHILS # (AUTO) 0.3 K/uL (0.0-0.4); EOSINOPHILS % (AUTO) 4.3 % (0.0-4.0); HEMATOCRIT 30.8 % (36-48); LYMPHOCYTES # (AUTO) 1.9 K/uL (1.0-5.5); LYMPHOCYTES % (AUTO) 25.4 % (20.5-51.5); MEAN CORPUSCULAR HEMOGLOBIN 31 pg (27-31); MEAN CORPUSCULAR HGB CONC 33 % (32-36); MEAN CORPUSCULAR VOLUME 95 fL (79.0-98.0); MONOCYTES # (AUTO) 0.7 K/uL (0.0-1.0); MONOCYTES % (AUTO) 8.9 % (1.7-9.3); NEUTROPHILS # (AUTO) 4.5 K/uL (1.8-7.7); PLATELET COUNT (AUTO) 152 K/uL (130-430); RED BLOOD CELL COUNT(AUTO) 3.25 MIL/uL (4.2-6.2); RED CELL DISTRIBUTION WIDTH 15.5 % (9.0-15.0); WHITE BLOOD COUNT (AUTO) 7.4 K/uL (4.8-10.8)
[2020-12-15 08:30] LABS: ALANINE AMINOTRANSFERASE 34 U/L (12-78); ALBUMIN 2.8 g/dL (3.4-4.8); ANION GAP 3 (5-15); ASPARTATE AMINOTRANSFERASE 24 U/L (10-37); CALCIUM 8.8 mg/dL (8.4-11.0); CHLORIDE 107 mmol/L (98-107); CREATININE 1.02 mg/dL (0.55-1.30); GLUCOSE 138 mg/dL (70-99); PHOSPHORUS 3.9 mg/dL (2.7-4.5); POTASSIUM 4.9 mmol/L (3.5-5.1); SODIUM SERUM 142 mmol/L (136-145); TOTAL BILIRUBIN 0.3 mg/dL (0.0-1.0); UREA NITROGEN, BLOOD 27 mg/dL (8-21)
[2020-12-15] MEDS: FLUTICASONE PROPIONATE 50 mCg/SPRAY 16 GM NS SCH (09:00)
[2020-12-15] MEDS: PEG 400/HYPROMELLOSE/GLYCERIN 15 ML DROPS BOTH EYES SCH ×2 (09:00→21:00)
[2020-12-15] MEDS: METOPROLOL SUCCINATE 25 MG TAB.SR.24H (TOPROL XL) PO SCH ×2 (09:00→21:44)
[2020-12-15] MEDS ORDERED: buPROPion HCL 75 MG TABLET PO SCH (09:00)
[2020-12-15] MEDS: HYDROcodone/ACETAMIN 7.5-325 MG TAB PO SCH ×2 (09:00→13:46)
[2020-12-15] MEDS ORDERED: IPRATROPIUM/ALBUTEROL SULFATE 3 ML AMPUL.NEB (DUONEB) INH PRN (09:30)
--- NOTE | 2020-12-15 09:34 | NUR ---
Patient will be admitted to care of [facility]. Admitted to unit. Will go to room 110. Belongings list completed. Complete and up to date summary report printed. SBAR report to be given at bedside with opportunity for questions.
[2020-12-15 10:00] VITALS: BP_SYST 143
--- NOTE | 2020-12-15 10:09 | NUR ---
admission note received pt from e.rAdry c/o yesenia hutchinson under the care of dr llamas for Chest pain. pt denies chest pain at this time. educated pt on the use of call light and bed controls. safety precaution in place. call light in reach. bed in low position. encouraged pt to call for assist and pain medications. will cont to monitor./
[2020-12-15] MEDS: RANOLAZINE 500 MG TAB.SR.12H PO SCH ×2 (10:38→21:43)
[2020-12-15] MEDS: CLOPIDOGREL BISULFATE 75 MG TABLET PO SCH (10:39)
[2020-12-15] MEDS: glipiZIDE XL 5 MG TAB ( GLUCOTROL XL) PO SCH ×2 (10:39→21:44)
[2020-12-15] MEDS: PARoxetine HCL 20 MG TABLET PO SCH (10:39)
[2020-12-15] MEDS: CHOLECALCIFEROL (VITAMIN D3) 5,000 UNIT TABLET PO SCH (10:39)
[2020-12-15] MEDS: FUROSEMIDE 20 MG TABLET PO SCH (10:39)
[2020-12-15] MEDS: lisinopriL 5 MG TABLET PO SCH (10:40)
[2020-12-15] MEDS: FOLIC ACID 1 MG TABLET PO SCH (10:40)
[2020-12-15] MEDS: POTASSIUM CHLORIDE 8 MEQ TABLET.SA PO SCH (10:40)
--- NOTE | 2020-12-15 10:43 | NUR ---
PER E.R REPORT ALL PO MEDS ORDERED IN ER NOT GIVE MEDS ARE NOT AVAILABLE.
[2020-12-15] MEDS: INSULIN REGULAR, HUMAN 100 UNITS/ML, 10 ML VIAL (humuLIN R) SUBCUT PRN (11:14)
--- NOTE | 2020-12-15 11:48 | NUR ---
spoke with pt's daughter Joceline give update and status of pt. verified she want pt to be DNR. and verified that pt is NOT allergic to Tylenol but pt IS allergic to norco (hallucination)
--- NOTE | 2020-12-15 15:09 | NUR ---
Dietitian Recommendations * Recommend Cardiac, CCHO standard carb-60 gm diet w/ Glucerna BID (ONS provides 440 kcal/day, 20 gm protein/day) * Encourage increase PO intakes LP, RD Please refer to Nutrition Assessment for details. Addendum: 12/15/20 at [address] Amended: Links added.
[2020-12-15 16:00] VITALS: BP_SYST 145
--- NOTE | 2020-12-15 17:28 | NUR ---
pt's bs = 66, pt denies any s/s , noted that pt is very alert, conversant, no c/o of headache or any s/s of hypoglycemia. pt given orange juice. will cont to monitor.
--- NOTE | 2020-12-15 17:44 | NUR ---
rechecked blood sugar after given orange juice. bs was 101.
--- NOTE | 2020-12-15 19:15 | NUR ---
OPENING NOTES: Received patient report from am shift nurse. Patient in bed, breathing evenly and nonlabored on 2L of O2 via NC, no s/s of distress, HOB elevated. Patient has an IV on the LAC 20G SL, patent, benign, and flushing. Educated patient on plan of care, call light within reach. Fall/safety/isolation precaution. Will continue to monitor.
[2020-12-15 20:00] VITALS: BP_SYST 151
[2020-12-15] MEDS: ISOSORBIDE DINITRATE 20 MG TABLET (ISORDIL) PO SCH (21:43)
[2020-12-15] MEDS: buPROPion HCL 75 MG TABLET PO SCH (21:43)
[2020-12-15] MEDS: ATORVASTATIN 10 MG TABLET PO SCH (21:43)
[2020-12-16] VITALS: BP_SYST 138
--- NOTE | 2020-12-16 | NUR ---
ROUNDS: Patient in bed, eyes closed, breathing evenly and nonlabored on 2L of O2 via nc, no s/s of distress. Will continue to monitor.
[2020-12-16] MEDS: NORMAL SALINE 5 ML DISP.SYRIN IVF SCH ×2 (06:00→14:00)
--- NOTE | 2020-12-16 06:42 | NUR ---
CLOSING NOTES: Patient in bed, breathing evenly and nonlabored on 2L of O2 via NC, no s/s of distress, HOB elevated. Patient has an IV on the LAC 20G SL, patent, benign, and flushing. Call light within reach. Fall/safety/isolation precaution. Will continue to monitor and endorse care to morning shift nurse.
[2020-12-16] MEDS ORDERED: LEVOTHYROXINE SODIUM 0.05 MG TABLET PO SCH (07:00)
[2020-12-16 07:12] LABS: ANION GAP 2 (5-15); CALCIUM 8.8 mg/dL (8.4-11.0); CHLORIDE 105 mmol/L (98-107); CREATININE 1.16 mg/dL (0.55-1.30); GLUCOSE 129 mg/dL (70-99); POTASSIUM 4.7 mmol/L (3.5-5.1); SODIUM SERUM 140 mmol/L (136-145); UREA NITROGEN, BLOOD 32 mg/dL (8-21)
[2020-12-16 07:38] LABS: BASOPHILS % (AUTO) 0.4 % (0.0-2.0); EOSINOPHILS # (AUTO) 0.3 K/uL (0.0-0.4); EOSINOPHILS % (AUTO) 3.4 % (0.0-4.0); HEMATOCRIT 29.6 % (36-48); HEMOGLOBIN 9.9 g/dL (12.0-16.0); LYMPHOCYTES # (AUTO) 2.6 K/uL (1.0-5.5); LYMPHOCYTES % (AUTO) 30.4 % (20.5-51.5); MEAN CORPUSCULAR HEMOGLOBIN 31 pg (27-31); MEAN CORPUSCULAR HGB CONC 33 % (32-36); MEAN CORPUSCULAR VOLUME 94 fL (79.0-98.0); MONOCYTES # (AUTO) 0.9 K/uL (0.0-1.0); MONOCYTES % (AUTO) 10.3 % (1.7-9.3); NEUTROPHILS # (AUTO) 4.8 K/uL (1.8-7.7); NEUTROPHILS % (AUTO) 55.5 % (40.0-70.0); PLATELET COUNT (AUTO) 160 K/uL (130-430); RED BLOOD CELL COUNT(AUTO) 3.16 MIL/uL (4.2-6.2); RED CELL DISTRIBUTION WIDTH 15.8 % (9.0-15.0); WHITE BLOOD COUNT (AUTO) 8.7 K/uL (4.8-10.8)
[2020-12-16 08:00] VITALS: BP_SYST 149
[2020-12-16] MEDS: POTASSIUM CHLORIDE 8 MEQ TABLET.SA PO SCH (08:29)
[2020-12-16] MEDS: CLOPIDOGREL BISULFATE 75 MG TABLET PO SCH (08:29)
[2020-12-16] MEDS: buPROPion HCL 75 MG TABLET PO SCH (08:30)
[2020-12-16] MEDS: CHOLECALCIFEROL (VITAMIN D3) 5,000 UNIT TABLET PO SCH (08:30)
[2020-12-16] MEDS: PARoxetine HCL 20 MG TABLET PO SCH (08:30)
[2020-12-16] MEDS: RANOLAZINE 500 MG TAB.SR.12H PO SCH (08:30)
[2020-12-16] MEDS: glipiZIDE XL 5 MG TAB ( GLUCOTROL XL) PO SCH (08:31)
[2020-12-16] MEDS: FUROSEMIDE 20 MG TABLET PO SCH (08:31)
[2020-12-16] MEDS: FOLIC ACID 1 MG TABLET PO SCH (08:31)
[2020-12-16] MEDS: ISOSORBIDE DINITRATE 20 MG TABLET (ISORDIL) PO SCH (08:32)
[2020-12-16] MEDS: METOPROLOL SUCCINATE 25 MG TAB.SR.24H (TOPROL XL) PO SCH (08:33)
[2020-12-16] MEDS: FLUTICASONE PROPIONATE 50 mCg/SPRAY 16 GM NS SCH (08:37)
[2020-12-16] MEDS: PEG 400/HYPROMELLOSE/GLYCERIN 15 ML DROPS BOTH EYES SCH (08:37)
[2020-12-16] MEDS: lisinopriL 5 MG TABLET PO SCH (08:37)
[2020-12-16] MEDS ORDERED: PANTOPRAZOLE SODIUM 40 MG TAB PO SCH (09:00)
[2020-12-16] MEDS ORDERED: CLOBETASOL PROPIONATE 0.05% 15 GM CREAM..G. TP SCH (09:00)
[2020-12-16 10:34] VITALS: BP_SYST 149
[2020-12-16 12:03] VITALS: BP_SYST 130
[2020-12-16] MEDS: INSULIN REGULAR, HUMAN 100 UNITS/ML, 10 ML VIAL (humuLIN R) SUBCUT PRN (12:13)
[2020-12-16] MEDS ORDERED: NITR-85 PO ×2 (12:16→14:42)
--- NOTE | 2020-12-16 14:51 | NUR ---
Case mgt: Rec'd call from nurse Holliday asking me to call daughter September regarding transportation--I called Joceline Fay at [phone]-she said she doesn't have vehicle to picker and sorter load and unload pt--I explained to her it's possible insurance might not cover BLS ambulance transport back to assisted living--I called [facility] for BLS pickup and indicated pt on at 2L/NC with unsteady gait--s/w Shahriar-no mention by Shahriar of BLS ambulance not being covered by Medicare/Medical--picker and sorter load and unload at 5:00pm and nurse Holliday made aware and also daughter September-dispo code [id number]
[2020-12-16 16:03] VITALS: BP_SYST 142
--- NOTE | 2020-12-16 17:35 | NUR ---
D/C Patient Patient given medication reconciliation form and D/C instructions. Exit Care provided. Patient verbalized understanding. MD discussed with patient the results and treatment provided. NON Ambulatory for discharge to home. Patient in stable condition, ID band removed. IV catheter removed, intact and dressing applied, no active bleeding. Rx of given. Patient educated on pain management. All belongings sent with patient.
== END 2020-12-16 17:30 | disposition home or self-care (01) ==
LOC: SED 12:08 → STU 14:16
PROVIDERS: ADMIT Preventive Medicine Preventive Medicine/Occupational Environmental Medicine; ATTEND Preventive Medicine Preventive Medicine/Occupational Environmental Medicine
DX: R07.89 Other chest pain (principal); Z20.822 Contact with and (suspected) exposure to COVID-19; I11.0 Hypertensive heart disease with heart failure; I50.9 Heart failure, unspecified; I25.10 Atherosclerotic heart disease of native coronary artery without angina pectoris; E11.65 Type 2 diabetes mellitus with hyperglycemia; K21.9 Gastro-esophageal reflux disease without esophagitis; J44.9 Chronic obstructive pulmonary disease, unspecified; E03.9 Hypothyroidism, unspecified; E78.5 Hyperlipidemia, unspecified; F41.9 Anxiety disorder, unspecified; N39.0 Urinary tract infection, site not specified; D64.9 Anemia, unspecified; R79.89 Other specified abnormal findings of blood chemistry; E88.09 Other disorders of plasma-protein metabolism, not elsewhere classified; E43 Unspecified severe protein-calorie malnutrition; R53.81 Other malaise; Z88.1 Allergy status to other antibiotic agents; Z91.040 Latex allergy status; Z78.9 Other specified health status; Z90.49 Acquired absence of other specified parts of digestive tract; Z79.899 Other long term (current) drug therapy
CPT/HCPCS: 36415 ×3; 71045; 80048; 80053 ×2; 80061; 81000; 82962 ×3; 83735; 83880; 84100; 84484 ×2; 85025 ×3; 87040; 87086; 87426; 93005; 93306; 99285; G0378 ×3; J1956; U0003; 99284